=== PATIENT | female | born 1985 | race Caucasian/White ===

== ENCOUNTER 2020-07-12 22:11 | Emergency (ER) | payer OTHER, SELFPAY ==
--- NOTE | ~2020-07-12 | CT_ITS ---
EXAMINATION: CT brain wo con DATE: 07/12/2020 23:03 INDICATION: Migraine headache. TECHNIQUE: Computed tomography (CT) of the head was performed without intravenous contrast. The mA wa s adjusted according to patient size. Iterative reconstruction technique was employed. The dose-lengt h product was 605.33 mGy-cm. COMPARISON: None FINDINGS: There is no intracranial hemorrhage, acute infarction, or abnormal intracranial mass lesion . The ventricles are normal in size. There is mucosal thickening in the paranasal sinuses. The orbits are normal. The mastoid air cells are normal. IMPRESSION: 1. Normal brain. Reviewed, dictated and finalized at location A. IMPRESSION: 1. Normal brain.
--- NOTE | ~2020-07-12 | XR_ITS ---
EXAMINATION: XR chest 2V DATE: 07/12/2020 23:06 INDICATION: Nausea and vomiting. TECHNIQUE: Frontal and lateral views of the chest were obtained. COMPARISON: None. FINDINGS: The chest demonstrates clear lungs without pneumonia, pleural effusion, or pneumothorax. Th e heart size is normal. There is mild pectus excavatum. IMPRESSION: 1. No acute cardiopulmonary disease. Reviewed, dictated and finalized at location A.
[2020-07-12 22:13] VITALS: BP 173/106; PULSE 98; RESP 16; TEMP 36.4; O2SAT 100
--- NOTE | 2020-07-12 22:20 | ED.NAVMDI ---
HPI - Nausea/Vomiting/Diarrhea General Chief complaint: Headache Stated complaint: coffee ground vomit Time Seen by Provider: 07/12/20 22:20 Source: patient and family Mode of arrival: ambulatory Limitations: no limitations History of Present Illness HPI Narrative: Patient is a 34-year-old female who presents for evaluation of headache and vomiting. Patient states she awakened this afternoon with a headache located throughout her head. She states that she has a history of migraine headaches, but has not had one in quite some time. This is a bit more severe than typical migraines. She denies blurry vision, double vision, does report some mild dizziness. No lightheadedness, numbness or syncopal events. No difficulty with ambulation. No frequent falls. Patient reports some mild photosensitivity which is consistent with her previous migraine headaches, she denies any aura type sensation. Patient reports gradual worsening of the headache throughout the day and numerous episodes of coffee-ground emesis. Patient states she has vomited approximately 6 times today but denies any abdominal pain. No diarrhea or constipation. Patient denies thunderclap sensation. She denies neck pain or fever. No recent sick contacts. She reports mild rhinorrhea, no cough, chest pain or shortness of breath. Related Data Allergies Allergy/AdvReac Type Severity Reaction Status Date / Time No Known Allergies Allergy Verified 07/13/20 00:56 Review of Systems Review of Systems: Narrative: CONSTITUTIONAL: Denies fever, chills, or sweats. EYES: Reports photosensitivity to light ENT: Reports rhinorrhea and congestion without sore throat, or otalgia. CARDIOVASCULAR: Denies chest pain, palpitations, or edema. RESPIRATORY: Denies cough or dyspnea. GASTROINTESTINAL: Denies abdominal pain, reports nausea and vomiting GENITOURINARY: Denies dysuria or hematuria. SKIN: Denies rash or itching. MUSCULOSKELETAL: Denies back pain, joint pain, or myalgia. NEUROLOGIC: Reports headache without numbness or weakness PMFSH Past Medical History Medical History (Updated 07/13/20 @ 01:00 by Jessie Howell MD) Migraine headache Surgical History Surgical History (Updated 07/12/20 @ 22:53 by Jessie Howell MD) No pertinent past surgical history Social History Social History (Updated 07/12/20 @ 22:54 by Jessie Howell MD) Smoking status: Current every day smoker Tobacco type: e-cigarettes/vaping Alcohol intake: current Alcohol use details: Social Substance use: never Gender identity (if verbalized by the patient): Female Exam Narrative: Exam Narrative: GENERAL: Awake, alert, conversant HEAD: Normocephalic, atraumatic. EYES: PERRLA and EOMI. ENT: Nares clear, no rhinorrhea or epistaxis. Mucous membranes moist. NECK: Supple. CHEST: No respiratory distress, breathing even and non labored, lungs are clear without wheezing or crackles, no chest wall tenderness HEART: Regular rate, sinus rhythm ABDOMEN:Non distended, mild epigastric tenderness without guarding, rigidity EXTREMITIES: Normal range of motion. No edema. SKIN: Warm, dry, no rash. NEURO:No focal deficits. Alert and oriented x3. Finger to nose intact bilaterally. EOMs intact without nystagmus. No facial droop/asymmetry noted bilaterally. Grimace intact. Intact sensation in face. Hearing intact bilaterally. Shoulder shrug intact. Strength 5/5 bilateral upper extremities. Strength 5/5 bilateral lower extremities. Reflexes 2+ patellar. Heel to henderson intact bilaterally. Ambulatory exam deferred. Course Vital Signs Vital signs: Vital Signs Temperature 36.4 C L 07/12/20 22:13 Pulse Rate 98 07/12/20 22:13 Respiratory Rate 16 07/12/20 22:13 Blood Pressure 173/106 H 07/12/20 22:13 Pulse Oximetry 100 07/12/20 22:13 Temperature 36.4 C L 07/12/20 22:13 Pulse Rate 71 07/12/20 23:46 Respiratory Rate 16 07/12/20 23:46 Blood Pressure 154/106 H 07/12/20 23:46 Pulse Ox
[2020-07-12 22:49] LABS: Basophils Percent Auto 0.3 % (0.2-1.2); Eosinophils Absolute Auto 0.1 K/mm3 (0-0.3); Eosinophils Percent Auto 1.1 % (0-4.4); Hematocrit 41.4 % (37.0-47.0); Hemoglobin 14.1 g/dL (12.0-15.0); Immature Granulocyte Absolute 0.04 K/mm3 (0.00-0.031); Immature Granulocyte Percent A 0.4 % (0-0.5); Lymphocytes Absolute Auto 2.02 K/mm3 (0.9-3.2); Lymphocytes Percent Auto 19.8 % (18.3-44.2); Mean Corpuscular HGB Conc 34.1 g/dl (32-36); Mean Corpuscular Hemoglobin 32.9 pg (26-34); Mean Corpuscular Volume 96.5 fl (80-100); Mean Platelet Volume 9.9 fl (7.4-10.4); Monocytes Absolute Auto 0.6 K/mm3 (0.1-0.6); Monocytes Percent Auto 6.2 % (2.6-8.5); Neutrophils Absolute Auto 7.4 K/mm3 (1.3-6.7); Neutrophils Percent Auto 72.2 % (45.5-73.1); Platelet Count Result 256 k/mm3 (150-375); Red Blood Count 4.29 M/mm3 (4.2-5.4); Red Cell Distribution Width 13.2 % (11.5-14.5); White Blood Count 10.2 K/mm3 (4.5-10.0)
[2020-07-12] MEDS: ONDANSETRON INJ 4 MG/2 ML VIAL IV PUSH (22:50)
--- NOTE | 2020-07-12 22:50 | ECG_ITS ---
Measurements Intervals [place] Rate: 60 P: 49 IA: 120 QRS: 33 QRSD: 85 T: 38 QT: 405 QTc: 407 Interpretive Statements SINUS RHYTHM WITH MARKED SINUS ARRHYTHMIA BORDERLINE ST ABNORMALITY- ANT/INF LEADS BASELINE WANDER- I, II BORDERLINE ECG Electronically Signed On 07-13-2020 7:33:40 CDT by Moises Obrien D.O.
[2020-07-12] MEDS: SODIUM CHLORIDE 0.9% IV 2,000 ML 999 ML IV CONT (22:51)
[2020-07-12 23:01] LABS: Alanine Aminotransferase 43 U/L (4-35); Albumin Level 4.7 g/dL (3.5-5.1); Alkaline Phosphatase 47 U/L (38-126); Anion Gap 11 mmol/L (8-16); Aspartate Amino Transferase 53 U/L (14-36); Bilirubin,Total 0.6 mg/dL (0.2-1.3); Blood Urea Nitrogen 18 mg/dL (7-17); Calcium 9.2 mg/dL (8.4-10.2); Carbon Dioxide 22 mmol/L (22-30); Chloride 104 mmol/L (98-107); Estimated CRCL calculation 68 ml/min; Estimated Glomerular Filt Rate > 60; Glucose 84 mg/dL (65-105); Lipase 85 U/L (23-300); Potassium 3.8 mmol/L (3.4-5.0); Sodium 137 mmol/L (137-145)
[2020-07-12] MEDS: diphenhydrAMINE HCl INJ 50 MG/ML VIAL 25 MG IV PUSH (23:17)
[2020-07-12 23:22] LABS: Add Urine Microscopic? YES; Appearance Urine Clear (Clear); Bilirubin Urine Negative (Negative); Blood Urine 1+ (Negative); Color Urine Yellow (Yellow); Glucose Urine UA Negative (Negative); Ketones Urine Trace mg/dL (Negative); Leukocyte Esterase Ur Negative LEU/UL (Negative); Mucus Urine Heavy /lpf; Nitrate Urine Negative (Negative); Protein Urine 1+ mg/dL (Negative); Squamous Epithelial Cell Urine Moderate /hpf (Few); Urobilinogen Urine Negative mg/dL (<2.0); WBC Urine 0-3 /hpf
[2020-07-12 23:23] VITALS: BP 165/106; PULSE 84; O2SAT 100
[2020-07-12] MEDS: MAGNESIUM SULF 2 GM/WATER 50ML 2 GM/50 ML BAG IVPB (23:24)
[2020-07-12 23:29] LABS: Specific Grav Ur 1.031 (1.001-1.035)
[2020-07-12 23:46] VITALS: BP 154/106; PULSE 71; RESP 16; O2SAT 100
[2020-07-13] MEDS: KETOROLAC 15 MG/ML VIAL (*BKC) IV PUSH (00:08)
[2020-07-13 00:30] VITALS: BP 134/93; PULSE 77; RESP 15; O2SAT 100
== END 2020-07-13 01:10 | disposition home or self-care (01) ==
PROVIDERS: Emergency Provider Emergency Medicine
DX: G43.909 Migraine, unspecified, not intractable, without status migrainosus (principal); R11.2 Nausea with vomiting, unspecified; F17.210 Nicotine dependence, cigarettes, uncomplicated
CPT/HCPCS: 36415; 70450; 71046; 80053; 81001; 81025; 83690; 85025; 93005; 96361; 96365; 96375; 99284; J0131; J1200; J1885; J2405; J3475; J7030

== ENCOUNTER 2020-10-30 17:10 | Outpatient (CLI) | payer OTHER, SELFPAY ==
[2020-11-07 13:09] LABS: Vitamin D 25 Hydroxy 46 ng/mL (30-100)
== END 2020-10-30 17:11 | disposition home or self-care (01) ==
LOC: CHSLAB 17:12
PROVIDERS: Visit Provider Nurse Practitioner
DX: E55.9 Vitamin D deficiency, unspecified (principal)
CPT/HCPCS: 36415; 82306

== ENCOUNTER 2021-11-06 08:18 | Outpatient (CLI) | payer OTHER, SELFPAY ==
[2021-11-06 09:40] LABS: Beta HCG Quantitative < 2.39 mIU/ML
[2021-11-06 11:15] LABS: Vitamin D 25 Hydroxy 35.3 ng/mL
[2021-11-08 23:38] LABS: Prolactin 10.4 ng/mL (***)
[2021-11-09 04:09] LABS: DHEA-Sulfate 60 mcg/dL (23-266); Insulin Level Total 4.7 uIU/mL (<=19.6)
[2021-11-09 11:49] LABS: Testosterone Total 44 ng/dL (2-45)
== END 2021-11-06 08:19 | disposition home or self-care (01) ==
PROVIDERS: Visit Provider Nurse Practitioner
DX: Z13.21 Encounter for screening for nutritional disorder (principal); N91.2 Amenorrhea, unspecified
CPT/HCPCS: 36415; 82306; 82627; 83498; 83525; 84146; 84403; 84443; 84702

== ENCOUNTER 2022-01-23 11:43 | Emergency (ER) | payer OTHER, SELFPAY ==
[2022-01-23 11:48] VITALS: BP 152/114; PULSE 103; RESP 18; TEMP 36.6; O2SAT 100
--- NOTE | 2022-01-23 12:33 | ECG_ITS ---
Measurements Intervals [place] Rate: 89 P: 45 WY: 112 QRS: 51 QRSD: 84 T: 17 QT: 373 QTc: 454 Interpretive Statements SINUS RHYTHM WITH SHORT [place] INTERVAL NONSPECIFIC T WAVE ABNORMALITY BORDERLINE ECG COMPARED TO ECG 07/12/2020 23:13:22 NO SIGNIFICANT CHANGES Electronically Signed On 01-23-2022 13:44:07 CDT by Delgado Scott M.D.
[2022-01-23 12:47] LABS: Basophils Percent Auto 0.4 % (0.2-1.2); Eosinophils Absolute Auto 0.1 K/mm3 (0-0.3); Eosinophils Percent Auto 0.9 % (0-4.4); Hematocrit 39.9 % (37.0-47.0); Hemoglobin 13.3 g/dL (12.0-15.0); Immature Granulocyte Absolute 0.02 K/mm3 (0.00-0.031); Immature Granulocyte Percent A 0.4 % (0-0.5); Lymphocytes Percent Auto 36.6 % (18.3-44.2); Mean Corpuscular HGB Conc 33.3 g/dl (32-36); Mean Corpuscular Hemoglobin 35.5 pg (26-34); Mean Corpuscular Volume 106.4 fl (80-100); Mean Platelet Volume 8.9 fl (7.4-10.4); Monocytes Absolute Auto 0.5 K/mm3 (0.1-0.6); Monocytes Percent Auto 9.7 % (2.6-8.5); Neutrophils Absolute Auto 2.9 K/mm3 (1.3-6.7); Platelet Count Result 246 k/mm3 (150-375); Red Blood Count 3.75 M/mm3 (4.2-5.4); White Blood Count 5.5 K/mm3 (4.5-10.0)
[2022-01-23 12:56] LABS: Prothrombin Time 13.2 Seconds (11.1-14.7)
[2022-01-23 12:58] VITALS: BP 166/120; PULSE 83; RESP 14; O2SAT 99
[2022-01-23 13:10] LABS: Alanine Aminotransferase 26 U/L (4-35); Albumin Level 4.6 g/dL (3.5-5.1); Alkaline Phosphatase 67 U/L (38-126); Anion Gap 11 mmol/L (8-16); Aspartate Amino Transferase 67 U/L (14-36); Bilirubin,Total 0.8 mg/dL (0.2-1.3); Blood Urea Nitrogen 14 mg/dL (7-17); Carbon Dioxide 29 mmol/L (22-30); Chloride 99 mmol/L (98-107); Estimated CRCL calculation 60 ml/min; Estimated Glomerular Filt Rate > 60; Glucose 86 mg/dL (65-110); Potassium 3.9 mmol/L (3.4-5.0); Sodium 139 mmol/L (137-145)
[2022-01-23 13:16] LABS: Troponin I < 0.012 ng/mL (0.000-0.034)
[2022-01-23 13:19] VITALS: BP 170/108; PULSE 83; RESP 16; O2SAT 99
[2022-01-23] MEDS: cloNIDine HCL 0.1 MG TABLET PO (13:25)
[2022-01-23 13:34] LABS: Appearance Urine Clear (Clear); Bilirubin Urine 1+ (Negative); Color Urine Yellow (Yellow); Glucose Urine UA Negative (Negative); Ketones Urine Trace mg/dL (Negative); Leukocyte Esterase Ur 2+ LEU/UL (Negative); Nitrate Urine Negative (Negative); Protein Urine 1+ mg/dL (Negative); Specific Grav Ur 1.025 (1.001-1.035); pH Urine 7.5 (5.0-9.0)
[2022-01-23 13:40] LABS: Mucus Urine Heavy /lpf; RBC Urine 21-50 /hpf (0-2); Squamous Epithelial Cell Urine Many /hpf (Few)
[2022-01-23 13:41] LABS: Add Urine Microscopic? YES; Blood Urine Trace-Intact (Negative)
[2022-01-23 14:03] VITALS: BP 139/99; PULSE 80; RESP 16; O2SAT 99
--- NOTE | 2022-01-23 14:31 | ED.DIZZY ---
HPI - Dizziness General Chief Complaint: Dizziness Stated Complaint: hypertension Time Seen by Provider: 01/23/22 12:19 Source: patient Mode of arrival: ambulatory Limitations: no limitations History of Present Illness HPI Narrative: 36-year-old otherwise healthy here with complaints of dizziness, headache since last few days today while she was at work started having more dizzy spells. She denied any chest pain or shortness of breath. She states that he just do not feel good no history of fever or chills. MD elicited complaint: dizziness Timing: gradual onset (3 days) Severity: mild Description: lightheadedness Exacerbating factors: nothing Relieving factors: nothing Associated symptoms: denies other symptoms Related Data Allergies Allergy/AdvReac Type Severity Reaction Status Date / Time No Known Allergies Allergy Verified 07/13/20 00:56 Review of Systems Review of Systems: All systems reviewed & are unremarkable except as noted in HPI and below Constitutional: Constitutional: Reports no additional constitutional complaints Eyes: Eyes: Reports no additional eye complaints ENT: Reports system reviewed and no additional complaints, except as documented Cardiovascular: Cardiovascular: Reports no additional cardiovascular complaints Respiratory: Respiratory: Reports no additional respiratory complaints Gastrointestinal: Gastrointestinal: Reports no additional gastrointestinal complaints Musculoskeletal: Musculoskeletal: Reports no additional musculoskeletal complaints Neurologic: Reports as per HPI Endocrine: Endocrine: Reports no additional endocrine complaints PMFSH Past Medical History Medical History Migraine headache Surgical History Surgical History No pertinent past surgical history Social History Social History Smoking status: Current every day smoker Tobacco type: e-cigarettes/vaping Alcohol intake: current Alcohol use details: Social Substance use: never Gender identity (if verbalized by the patient): Female Exam Narrative: GENERAL: Well-appearing, well-nourished, and in no acute distress. HEAD: Normocephalic, atraumatic. EYES: PERRLA and EOMI NECK: Supple. CHEST: Clear to auscultation. No respiratory distress. HEART: Regular rate and rhythm. No murmur heard. Normal peripheral pulses. ABDOMEN: Soft, nontender, nondistended, normal active bowel sounds. EXTREMITIES: Normal range of motion. No edema. SKIN: Warm, dry, no rash. NEURO: No focal deficits. Alert and oriented x3. PSYCH: Normal mood and affect. Course Course Emergency Course: She was given 1.1 of clonidine which brought her pressure from 152/114 to 139/99, she is feeling much better informed her about the lab work. I discussed with Dr. Downs to see her as a new patient will follow up in the office in 2 days. Patient does feel better and recommended to take a day off and rest Vital Signs Vital signs: Vital Signs Temperature 36.6 C 01/23/22 11:48 Pulse Rate 103 H 01/23/22 11:48 Respiratory Rate 18 01/23/22 11:48 Blood Pressure 152/114 H 01/23/22 11:48 Pulse Oximetry 100 01/23/22 11:48 Temperature 36.6 C 01/23/22 11:48 Pulse Rate 80 01/23/22 14:03 Respiratory Rate 16 01/23/22 14:03 Blood Pressure 139/99 H 01/23/22 14:03 Pulse Oximetry 99 01/23/22 14:03 MDM - Dizziness MDM Narrative Medical decision making narrative: 36-year-old with sudden onset of dizziness and headache with elevated blood pressure with no my previous history and her routine work-up including EKG. Meanwhile I will give her 0.1 of clonidine to bring her pressure down. Lab Data Result diagrams: 01/23/22 12:40 01/23/22 12:40 Labs: Lab Results 01/23/22 01/23/22 01/23/22 Range/Units 12:40 12:40 12:40 WBC 5.5
[2022-01-23 14:49] VITALS: BP 150/112; PULSE 89; RESP 16; O2SAT 100
== END 2022-01-23 14:50 | disposition home or self-care (01) ==
PROVIDERS: Emergency Provider Family Medicine
DX: R42 Dizziness and giddiness (principal); I10 Essential (primary) hypertension
CPT/HCPCS: 36415; 80053; 81001; 84443; 84484; 85025; 85610; 93005; 99284; A9270

== ENCOUNTER 2022-01-25 16:32 | Outpatient (CLI) | payer OTHER, SELFPAY ==
[2022-01-25 17:07] LABS: Add Urine Microscopic? YES; Appearance Urine Cloudy (Clear); Bacteria Urine Trace /hpf; Bilirubin Urine Negative (Negative); Blood Urine 1+ (Negative); Calcium Oxalate Crystals Urine Many /hpf; Color Urine Amber (Yellow); Glucose Urine UA Negative (Negative); Ketones Urine Trace mg/dL (Negative); Leukocyte Esterase Ur 2+ LEU/UL (NEGATIVE); Mucus Urine Moderate /lpf; Nitrate Urine Negative (Negative); Protein Urine 1+ mg/dL (Negative); RBC Urine 21-50 /hpf (0-2); Specific Grav Ur 1.029 (1.001-1.035); Squamous Epithelial Cell Urine Many /hpf (Few); Urobilinogen Urine Negative mg/dL (<2.0)
[2022-01-25 17:08] LABS: D Dimer 0.57 ug/mL (<0.48)
--- NOTE | 2022-02-01 12:38 | WPDHOLTEREM ---
Holter/Event Monitor Holter/Event Monitor Date of procedure: 01/25/22 Holter/Event Procedure: 48 Hr Holter Monitor Indications: Palpitations Conclusion: 1. 48 hour holter monitor on 01/25/22. 2. Underlying rhythm is sinus rhythm. HR range 51-152 bpm; average HR 88 bpm. 3. There are 6 premature supraventricular complexes and 2 supraventricular couplets. No supraventricular tachycardia. 4. There are 19 premature ventricular complexes. No ventricular tachycardia. 5. No sinoatrial or atrioventricular blocks. No significant pauses greater than 2 seconds. 6. No symptoms available for correlation.
== END 2022-01-25 16:33 | disposition home or self-care (01) ==
PROVIDERS: PCP Family Medicine; Visit Provider Family Medicine
DX: R00.0 Tachycardia, unspecified (principal); R00.2 Palpitations; R06.00 Dyspnea, unspecified; R31.9 Hematuria, unspecified
CPT/HCPCS: 36415; 81001; 85380; 93225; 93226

== ENCOUNTER 2022-01-31 07:22 | Outpatient (CLI) | payer OTHER, SELFPAY ==
--- NOTE | ~2022-01-31 | CT_ITS ---
EXAMINATION: CTA chest PE protocol DATE: 01/31/2022 08:20 INDICATION: Other specified abnormal findings of blood chemistry. Tachycardia. TECHNIQUE: Computed tomography angiography (CTA) of the chest was performed with 100 mL Omnipaque-350 intravenous contrast timed to evaluate the pulmonary arteries. Coronal maximum intensity projection 3D-reconstructions were created by the technologist. Automated exposure control and iterative reconst ruction technique were employed. The dose-length product was 134.60 mGy-cm. COMPARISON: Chest 2 views 07/12/20 FINDINGS: There is no pneumonia or pleural effusion. The heart size is normal. No pericardial effusio n. There is no pulmonary embolus. The bones are unremarkable. IMPRESSION: 1. No pulmonary embolus. Reviewed, dictated and finalized at location A. IMPRESSION: 1. No pulmonary embolus.
== END 2022-01-31 07:23 | disposition home or self-care (01) ==
LOC: ANHIMG 07:25
PROVIDERS: PCP Family Medicine; Visit Provider Family Medicine
DX: R00.0 Tachycardia, unspecified (principal); R00.2 Palpitations; R79.89 Other specified abnormal findings of blood chemistry
CPT/HCPCS: 71275; Q9967

== ENCOUNTER 2022-03-28 15:25 | Outpatient (CLI) | payer OTHER, SELFPAY ==
[2022-03-28 16:26] LABS: Vitamin D 25 Hydroxy 69.1 ng/mL
== END 2022-03-28 15:26 | disposition home or self-care (01) ==
PROVIDERS: PCP Family Medicine; Visit Provider Obstetrics & Gynecology Gynecology
DX: E55.9 Vitamin D deficiency, unspecified (principal)
CPT/HCPCS: 36415; 82306

== ENCOUNTER 2022-08-26 14:44 | Outpatient (CLI) | payer OTHER, SELFPAY ==
[2022-08-26 15:01] LABS: Basophils Percent Auto 0.3 % (0.2-1.2); Eosinophils Percent Auto 0.5 % (0-4.4); Hematocrit 40.2 % (37.0-47.0); Hemoglobin 13.3 g/dL (12.0-15.0); Immature Granulocyte Absolute 0.02 K/mm3 (0.00-0.031); Immature Granulocyte Percent A 0.3 % (0-0.5); Lymphocytes Absolute Auto 1.55 K/mm3 (0.9-3.2); Lymphocytes Percent Auto 24.8 % (18.3-44.2); Mean Corpuscular HGB Conc 33.1 g/dl (32-36); Mean Corpuscular Hemoglobin 34.5 pg (26-34); Mean Corpuscular Volume 104.1 fl (80-100); Mean Platelet Volume 10.1 fl (7.4-10.4); Monocytes Absolute Auto 0.3 K/mm3 (0.1-0.6); Monocytes Percent Auto 4.5 % (2.6-8.5); Neutrophils Absolute Auto 4.4 K/mm3 (1.3-6.7); Neutrophils Percent Auto 69.6 % (45.5-73.1); Platelet Count Result 273 k/mm3 (150-375); Red Blood Count 3.86 M/mm3 (4.2-5.4); Red Cell Distribution Width 13.6 % (11.5-14.5); White Blood Count 6.3 K/mm3 (4.5-10.0)
[2022-08-26 15:11] LABS: Alanine Aminotransferase 41 U/L (6-35); Albumin Level 4.9 g/dL (3.5-5.1); Alkaline Phosphatase 82 U/L (38-126); Anion Gap 16 mmol/L (8-16); Aspartate Amino Transferase 73 U/L (14-36); Bilirubin,Total 0.7 mg/dL (0.2-1.3); Blood Urea Nitrogen 12 mg/dL (7-17); Calcium 9.2 mg/dL (8.4-10.2); Carbon Dioxide 24 mmol/L (22-30); Chloride 96 mmol/L (98-107); Estimated Glomerular Filt Rate > 60; Glucose 92 mg/dL (65-110); Potassium 3.5 mmol/L (3.4-5.0); Sodium 136 mmol/L (137-145)
== END 2022-08-26 14:45 | disposition home or self-care (01) ==
LOC: ANHLAB 14:45
PROVIDERS: PCP Family Medicine; Visit Provider Nurse Practitioner Family
DX: E86.0 Dehydration (principal); R00.0 Tachycardia, unspecified
CPT/HCPCS: 36415; 80053; 85025

== ENCOUNTER 2024-02-20 14:32 | Outpatient (CLI) | payer OTHER, SELFPAY ==
--- NOTE | ~2024-02-20 | CT_ITS ---
EXAMINATION: CT abdomen w con DATE: 02/20/2024 15:01 INDICATION: Abnormality of the pancreatic head TECHNIQUE: Computed tomography (CT) of the abdomen and pelvis was performed with 100 mL Omnipaque-350 intravenous contrast. Automated exposure control and iterative reconstruction technique were employe d. The dose-length product was 143.20 mGy-cm. COMPARISON: None FINDINGS: Lung bases are clear. Heart size is normal. No pericardial or pleural effusion. There are 3 indetermi phyllis subtle lesions at the dome of the liver the largest measuring 1.5 cm in maximal diameter which a re slightly lower in attenuation/enhancement in the surrounding liver. Gallbladder, spleen, pancreas, bilateral adrenal glands and left kidney are normal. 9 mm cyst at the lower pole of the right kidney . There is some fatty infiltration of the wall of the proximal colon. Visualized bowels are otherwise unremarkable with no obstruction. No pathologically enlarged abdominal lymphadenopathy. Bones are un remarkable. IMPRESSION: 1. 3 indeterminate subtle hypodense/hypoenhancing lesions at the dome of the liver comminuted largest measuring up to 1.5 cm. Recommend further evaluation with pre and postcontrast MRI. 2. No evident pancreatic lesions identified. This could be further evaluated at the same time as the liver lesions with MRI. Reviewed, dictated and finalized at location A. IMPRESSION: 1. 3 indeterminate subtle hypodense/hypoenhancing lesions at the dome of the li coy comminuted largest measuring up to 1.5 cm. Recommend further evaluation wit h pre and postcontrast MRI. 2. No evident pancreatic lesions identified. This could be further evaluated at the same time as the liver lesions with MRI.
[2024-02-20 14:51] LABS: Estimated Glomerular Filt Rate 46
== END 2024-02-20 14:33 ==
PROVIDERS: PCP Physician Assistant Medical; Visit Provider Physician Assistant Medical
DX: R93.5 Abnormal findings on diagnostic imaging of other abdominal regions, including retroperitoneum (principal); K86.9 Disease of pancreas, unspecified
CPT/HCPCS: 74160; Q9967

== ENCOUNTER 2025-04-07 15:03 | Outpatient (CLI) | payer OTHER, SELFPAY ==
--- NOTE | ~2025-04-07 | XR_ITS ---
Bilateral Hands Technique: Bilateral PA, oblique, and lateral views, and ball-catcher's view were obtained. Clinical History: Pain Findings: No acute fracture or dislocation is seen. Osseous alignment is anatomic. Joint spaces are p reserved. Soft tissues are unremarkable. Impression: Unremarkable bilateral hand radiographs. Reviewed, dictated and finalized at location . Impression: Unremarkable bilateral hand radiographs.
== END 2025-04-07 15:04 | disposition home or self-care (01) ==
LOC: MICIMG 15:06
PROVIDERS: PCP Family Medicine
DX: M79.642 Pain in left hand (principal); M79.641 Pain in right hand
CPT/HCPCS: 73130

== ENCOUNTER 2025-07-21 15:09 | Outpatient (CLI) | payer MEDICAID, SELFPAY ==
--- OUTSIDE RECORDS SUMMARY | 2025-04-20 06:00 | XMS_ITS ---
Author Organization [facility] [employer] [facility] Address [facility] [address] [address] Care Team Providers Care Tape Deck Installer Name Role Phone Yareli GAMEZ, Hector Primary Care Provider Ramonita Pierson Unavailable [phone] Ty Salamanca Unavailable [phone] REASON FOR VISIT Therapy Social History Sex Assigned At : Social History Observation Description Sex Assigned At Female Encounters Encounter Location Date Provider Diagnosis [facility] [place] [id number] [facility] [address] [address] 04/20/2025 Ty Salamanca Plan Of Treatment No Information Progress Notes * YAMILKA WOOD RDOB: [birth year] (39 yo F)Acc No.[id number]:04/20/2025 Patient: Riley BRANDTALESSANDRO YAMILKA Lin Provider: Lynda Salamanca LCPC :1985 A ge:39 Y S ex:Female Date:04/20/2025 [id number] Pcp:Hector Downs MD Data: * Chief Complaints: * T herapy * Electronic signature of Jaylene Salamanca LCPC on 07/21/2025 at 05:23 PM CDT Sign off status: Pending Signatures: No Ad Hoc Signature Added * Provider: Lynda Salamanca LCPC Date: 04/20/2025 Generated for Printi ng/Faxing/eTransmitting on: 0 07/21/2025 05:23 PM CDT
--- OUTSIDE RECORDS SUMMARY | 2025-07-21 17:23 | XMS_ITS ---
Author Organization [facility] Address [address] [address] Phone Care Team Providers Care Emergency Medical Tech Name Role Phone Hector Downs MD Primary Care Provider [facility] Service Episode Status:Identified (Enrolling) Start date:07/07/2025 Related program episode:[facility] (Active) Continued Care and Services Coordination
--- OUTSIDE RECORDS SUMMARY | 2025-07-21 17:23 | XMS_ITS | Clinical Summary ---
Author Organization [facility] [address] Address [address] [place] [address] Care Team Providers Care Occupational Health Coordinator Name Role Phone Hector Downs MD Primary Care Provider Jinny Lucio OD Unavailable [phone] Allergies No known active allergies Medications ergocalciferol (VITAMIN D) 50,000 unit capsule Take 1 capsule (50,000 Units total) by mouth once a week [address] (PROTONIX) 40 mg EC tablet Take 1 tablet (40 mg total) by mouth daily 2 Active sertraline (ZOLOFT) 100 mg tablet Take 2 tablets (200 mg total) by mouth daily Active atomoxetine (STRATTERA) 60 mg capsuleIndications :Attention-Deficit Hyperactivity Disorder Take 40 mg by mouth daily Active Auvelity 45-105 mg tablet, IR & ER, biphasic 3 Active QUEtiapine (SEROquel) 100 mg tablet Take 1 tablet (100 mg total) by mouth nightly 30 tablet 4 Active hydroCHLOROthiazid e (HYDRODIURIL) 25 mg tablet Take 1 tablet (25 mg total) by mouth daily 30 tablet 4 Active amLODIPine (NORVASC) 5 mg tablet Take 1 tablet (5 mg total) by mouth daily 30 tablet 4 Active docusate sodium (COLACE) 100 mg capsuleIndications :constipation Take 1 capsule (100 mg total) by mouth 2 (two) times a day for 5 days 10 capsule 4 Active hydrOXYzine (ATARAX) 25 mg tablet Take 1 tablet (25 mg total) by mouth nightly as needed for itching Active LORazepam (ATIVAN) 1 mg tablet Take 1 tablet (1 mg total) by mouth daily as needed for anxiety Active Active Problems Problem Noted Date Diagnosed Date 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 Per outside records, patient documented to have bilateral disc edema OS>OD confirmed on OCT as well as macular star OS>OD along with macular cotton wool spots and retinal hemorrhages. Assessment & Plan (12/06/2023 10:08 AM STARS COORDINATOR): TODAY --Pt reports seeing dots that she cannot see through in the right eye and central scotoma (The middle of my vision is just darkness, with clear peripheral vision) in the left eye --Exam notable for VA 20/20 OD, 20/30 OS ecc (improved from outside optom report), rAPD OS, color vision 10/11 OD, 7/11 OS. Slit lamp exam unremarkable OU. DFEx with OS>OD cotton wool spots, intraretinal hemorrhages. +exudates OS. --OCT RNFL with optic disc edema OS>OD, GCC thinning OS>OD, macula with normal central thickness OU, some peripheral thickening OU --HVF with evidence of central/inferior depressions c/w central scotoma OD, more diffuse inferior depressions OS. 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 Near syncope 10/31/2023 Mixed hyperlipidemia 08/25/2023 Tachycardia, unspecified 08/25/2023 Palpitations 08/25/2023 Other chest pain 08/25/2023 Primary hypertension 08/25/2023 H/O mitral valve prolapse 08/25/2023 H/O syncope 08/25/2023 Surgical History Surgery Date Site/Laterality Comments NO PAST SURGERIES Medical History Medical History Date Comments Chest pain Palpitation Anxiety Migraine headache Family History Medical History Relation Name Comments Autoimmune disease Mother Relation Name Status Comments Father [place] Mother Alive Social History Tobacco Use Types Packs/Day Years Used Date Smoking Tobacco: Former Cigarettes Vaping Smokeless Tobacco: Never Tobacco Cessation:Counseling Given: Not Answered [facility] Utilities Answer Date Recorded In the past 12 months has [employer] electric, gas, oil, or water company threatened to shut off services in your home? No 11/11/2023 Social Connection and Isolation Panel Answer Date Recorded In a typical week, how many times do you talk on the phone with family, friends, or neighbors? Patient unable to answer 11/11/2023 How often do you get togethe r with friends or relatives? Patient unable to answer 11/11/2023 How often do you attend chur ch or yazidism services? Patient unable to answer 11/11/2023 Do you belong to any clubs o r organizations such as restorationism groups, unions, fraternal or athletic groups, or school groups? Patient unable to answer 11/11/2023 How often do you attend meet ings of the clubs or organizations you belong to? Patient unable to answer 11/11/2023 Are you , , di vorced, , never , or living with a partner? Never 11/11/2023 AUDIT-C Answer Date Recorded Q1: How often do you have a drink containing alc ohol? Never 12/22/2023 Average Number of Drinks Not on file 024 Frequency of Binge Drinking Not on file 11/28 Overall Financial Resource Strain (CARDIA) Answe r Date Recorded How hard is it for you to pa y for the very basics like food, housing, medical care, and heating? Patient unable to answer 11/11/2023 Hunger Vital Sign Answer Date Recorded Within the past 12 months, y ou worried that your food would run out before you got the money to buy more. Patient unable to answer 11/11/2023 Within the past 12 months, t he food you bought just didn't last and you didn't have money to get more. Patient unable to answer 11/11/2023 PRAPARE - Transportation Answer Date Re corded In the past 12 months, has l ack of transportation kept you from medical appointments or from getting medications? Patient unable to answer 11/11/2023 In the past 12 months, has l ack of transportation kept you from meetings, work, or from getting things needed for daily living? Patient unable to answer 11/11/2023 Housing Stability Vital Sign Answer Magan e Recorded In the last 12 months, was t here a time when you were not able to pay the mortgage or rent on time? Patient unable to answer 11/11/2023 In the last 12 months, how m any places have you lived? 1 11/11/2023 In the last 12 months, was t here a time when you did not have a steady place to sleep or slept in a care home (including now)? Patient unable to answer 11/11/2023 Personal Safety Answer Date Recorded Have you ever been in or are you currently in a harmful physical or emotional relationship or is someone making you feel afraid or unsafe? Patient unable to answer 11/08/2023 Comments No Sex and Gender Information Value Date Recorded Sex Assigned at Not on file Legal Sex Female 7:44 PM STARS COORDINATOR Gender Identity Not on file Sexual Orientation Not on file Obstetrics History Last Filed Vital Signs Vital Sign Reading Time Taken Comments Blood Pressure 140/94 11/19/2023 11:31 AM STARS COORDINATOR Pulse 85 11/19/2023 11:31 AM STARS COORDINATOR Temperature 37 C (98.6 F) 11/19/2023 11:31 AM STARS COORDINATOR Respiratory Rate 22 11/19/2023 11:31 AM STARS COORDINATOR Oxygen Saturation 93% 11/19/2023 11:31 AM STARS COORDINATOR Inhaled Oxygen Concentration - - Weight 59.2 kg (130 lb 9.6 oz) 11/19/2023 5:00 A M STARS COORDINATOR Height 157.5 cm (5' 2) 11/18/2023 1:34 PM STARS COORDINATOR Body Mass Index 23.89 11/18/2023 1:34 PM STARS COORDINATOR Plan of Treatment Health Maintenance Due Date Last Done Comments Cervical Cancer Screening 1985 Depression Screening 1985 Varicella Vaccines (1 of 2 - 13+ 2-dose series) 1998 Hepatitis B Screening 2003 Regular Well Visit/Exam 18-64 2003 HPV Vaccines (1 - 3-dose SCDM series) 2012 DTaP/Tdap/Td Vaccine (2 - Td or Tdap) 10/27/2022 10/27/2012 Covid-19 Vaccine (3 - season) 2025 11/21/2020, 10/23/2020 Influenza Vaccine (#1) 2025 , 10/16/2023, 08/21/2022, Additional history exists Hepatitis C Screening Completed 11/08/2023, 023 Pneumococcal vaccine <65 Aged Out No longer eligible based on patient's age to complete this topic Procedures Procedure Name Priority Date/Time Associated Diagnosis Comments HEPATITIS PANEL, ACUTE Routine 11/08/2023 4:00 PM STARS COORDINATOR from Last 3 Months or Most Recently Relevant to Health Maintenance Results * Hepatitis panel, acute Blood (11/08/2023 4:00 PM STARS COORDINATOR) Hep A IgM Nonreactive Nonreactive [facility] Comment: Interpretive Data: If Hep A IgM Ab is reported as Equivocal, a new sample should be drawn in two weeks for testing. Current interpretive data was last revised on 20. Hep B core IgM Nonreactive Nonreactive [facility] Comment: Interpretive Data If HepB Core IgM Ab is reported as Equivocal, a new sample should be drawn in two weeks for testing. Current interpretive data was last revised on 20. Hep C Ab Nonreactive Nonreactive [facility] Comment: Antibodies to HCV not detected. Does NOT exclude the possibility of recent exposure to HCV. Current interpretive data was last revised on 22 Interpretive Data Nonreactive: Antibodies to HCV not detected. Does NOT exclude the possibility of recent exposure to HCV. Equivocal: Equivocal for HCV antibodies. Supplemental molecular testing will be automatically performed to determine infection status in accordance with current CDC screening recommendations. Reactive: Positive for HCV antibodies. This may represent current or past HCV infection. Supplemental molecular testing will be automatically performed to determine current infection status in accordance with current CDC screening recommendations. Interpretive data was last revised on 2020. HepBsAg Nonreactive Nonreactive [facility] Blood 11/08/2023 4:00 PM STARS COORDINATOR 11/08/2023 4:12 PM STARS COORDINATOR Ronda Dao NP LAB MICROBIOLOGY - GENE RAL ORDERABLES Final Result [facility] [address] [facility] Department [place] [address] from Last 3 Months or Most Recently Relevant to Health Maintenance Insurance [facility] [employer] Address: [facility] [id number] [place] [address] [facility] [employer] [facility] Address[facility] [id number] [place] [address] [employer] [facility] [employer] Address: [facility] [id number] [place] [address] Advance Directives For more information, please contact: [phone] * Full Code (Latest Code Status on File) Date Activated Date Inactivated Comments 11/08/2023 9:01 AM 11/19/2023 6:19 PM Care Teams Occupational Health Coordinator Relationship Specialty Start Date End Date Hector Dowsn MD [address] [facility] [address] [place] [address] PCP - General Family Medicine 12/03/22 Jinny Lucio OD [address] [place] [address] Referring Physician Optometry 12/05/23
--- OUTSIDE RECORDS SUMMARY | 2025-07-21 17:23 | XMS_ITS | Clinical Summary ---
Author Organization [facility] Address [address] [address] Phone Care Team Providers Care Supervisor Line Department Name Role Phone Hector Downs MD Primary Care Provider Allergies No known active allergies Medications ergocalciferol (VITAMIN D) [address] UNIT Capsule Take 1 Capsule by mouth once a week. On . 09/03/2020 Active Multivitamin-Min erals (therapeutic multivitamin-min erals) Tablet Take 1 Tablet by mouth daily. Active ondansetron (ZOFRAN-ODT) 4 MG TABLET DISPERSIBLE Take 1 Tablet by mouth every 6 hours as needed for Nausea - 1st line. 10 Tablet 08/21/2022 Active pantoprazole (PROTONIX) 40 MG Tablet Delayed Response Take 1 Tablet by mouth daily. 30 Tablet 08/21/2022 Active Probiotic Product (Probiotic-10) Chewable Tablet Take by mouth. Active Active Problems Problem Noted Date Diagnosed Date Nausea and vomiting 08/21/2022 Acute blood loss anemia 08/21/2022 Migraine 08/20/2022 MVP (mitral valve prolapse) 08/20/2022 Overview (08/20/2022): childhood Depression 08/20/2022 Panic attack 08/20/2022 Eating disorder 08/20/2022 Substance abuse 08/20/2022 Varicella 08/20/2022 High anion gap metabolic acidosis 08/20/2022 Anxiety High triglycerides Immunizations Immunization Administration Dates Next Due Influenza Vaccine greater than 3 yrs 05/27/2014 Influenza Vaccine, Quadrivalent, PF 08/21/2022 TDAP Vaccine 10/27/2012 Family History Medical History Relation Name Comments Chronic Obstructive Pulmonary Disease Maternal Grandmo ther Rheumatoid Arthritis Mother Breast Cancer Paternal Grandmother Kidney Disease Paternal Grandmother Relation Name Status Comments Maternal Grandmother Mother Paternal Grandmother Social History Tobacco Use Types Packs/Day Years Used Date Smoking Tobacco: Never Smokeless Tobacco: Never Alcohol Use Standard Drinks/Week Comments Yes 0 (1 standard drink = 0.6 oz pur e alcohol) socially Sexually Active Control Partners Comments Not Currently Comments No Sex and Gender Information Value Date Recorded Sex Assigned at Not on file Legal Sex Female 11:04 PM CDT Gender Identity Not on file Sexual Orientation Not on file Last Filed Vital Signs Vital Sign Reading Time Taken Comments Blood Pressure 137/88 07/10/2024 1:30 AM CDT Pulse 115 07/10/2024 1:30 AM CDT Temperature 36.6 C (97.8 F) 07/09/2024 5:41 PM CDT Respiratory Rate 18 07/10/2024 1:30 AM CDT Oxygen Saturation 99% 07/10/2024 1:30 AM CDT Inhaled Oxygen Concentration - - Weight 56.7 kg (125 lb) 07/09/2024 5:41 PM CDT Height 160 cm (5' 3) 07/09/2024 5:41 PM CDT Body Mass Index 22.14 07/09/2024 5:41 PM CDT Plan of Treatment Health Maintenance Due Date Last Done Comments Hepatitis C Virus (HCV) Screening 1985 Hepatitis B Immunization (1 of 3 - 19+ 3-dose series) 2004 Pap Smear 2006 Human Papillomavirus (HPV) Immunization (1 - 3-dose SCDM series) 2012 Cervical Cancer Screening (CCS) 2015 HPV/Cotest 2015 Influenza Immunization (#1) 2025 12/2 10/2022, 08/21/2022, 08/28/2020, Additional history exists SARS-COV-2 Immunization ( - season) 2025 11/21/2020, 10/23/2020 Td Immunization Every 10 Years (Adults With 1 Tdap) 10/16/2033 10/16/2023, 10/27/2012 Respiratory Syncytial Virus (RSV) Immunization (Adult) (1 - 1-dose 75+ series) 2060 DTaP/Tdap/Td Immunization Discontinued 10/16/2023, 10/2012 Meningococcal Immunization (ACWY) Aged Out No longer eligible based on patient's age to complete this topic Pneumococcal Immunization Combined Aged Out No longer eligible based on patient's age to complete this topic Rotavirus Immunization Aged Out No lo nger eligible based on patient's age to complete this topic Insurance [place]ICAID [place] Advance Directives * Full Code (Latest Code Status on File) Date Activated Date Inactivated Comments 08/20/2022 2:16 AM 08/21/2022 1:03 PM CPR-Full T reatment: FULL ARREST: Attempt Resuscitation/CPR wit intubation and mechanical ventilation. PRE-ARREST: Use entire range of life support measures to stabilize the patient. Care Teams Supervisor Line Department Relationship Specialty Start Date End Date Hector Downs MD [address] [place] [address] PCP - General Family Medicine 08/19/22
--- OUTSIDE RECORDS SUMMARY | 2025-07-21 17:23 | XMS_ITS | Patient Health Record ---
Author Organization [facility] Address [address] [facility] [address] [place] [address] Care Team Providers Care Dice Dealer Name Role Phone Hector Downs MD Primary Care Provider Ramonita Pierson Unavailable [phone] Ty Salamanca Unavailable [phone] Allergies No Known Allergies Reason For Referral No Information Medications Medication SIG (Take, Route, Frequency, Duration) Notes Start Date End Date Status amLODIPine Besylate 5 MG Tablet 1 tablet Orally Once a day Active Pantoprazole Sodium 40 MG Tablet Delayed Release 1 tablet 1/2 to 1 hour before morning meal Orally Once a day Active lamoTRIgine 25 MG Tablet 2 tablet in the morning Oral once a day; Duration: 90 days Active Ativan 1 MG Tablet 1 tablet at bedtime as needed Orally Once a day Active Iron 325 (65 Fe) MG Tablet 1 tablet Oral ly Three times a Week Active Atomoxetine HCl 100 MG Capsule 1 capsule in the morning Orally Once a day; Duration: 90 days Active Vitamin D 50 MCG (2000 UT) Tablet 1 tablet Orally Once a day Active Metoprolol Tartrate 25 MG Tablet 1 tablet with food Orally Twice a day Active traZODone HCl 100 MG Tablet 1 tablet at bedtime Orally Once a day; Duration: 90 days Active Sertraline HCl 100 MG Tablet TAKE 1 AND 1/2 TABLETS BY MOUTH ONCE DAILY; Duration: 90 Active Social History Tobacco Use: Social History Observation Description Date Details (start date - stop date) Unknown Sex Assigned At : Social History Observation Description Sex Assigned At Female Social History Household: Social Info Question Answer Notes Household Marital status: Tobacco Use: Social Info Question Answer Notes Tobacco Control (Standard) Tobacco use: Uses tobacco in other forms Additional Details Category Social Info Options Details Miscellaneous: Occupation: Radiology min h Migrated Social History Migrated Social History Alcohol Intake: Moderate 08/01/2023,Tobacco Years: Former smoker 08/01/2023 Problems Problem Type SNOMED Code ICD Code Onset Dates Problem Status W/U Status Risk Notes Problem Alcohol dependence (78993996) Alcohol dependence, uncomplicated (F10.20) Active confirmed Problem Moderate recurrent major depression (80961037) Major depressive disorder, recurrent, moderate (F33.1) Active confirmed Problem Generalized anxiety disorder (77729838) Generalized anxiety disorder (F41.1) Active confirmed Problem Attention deficit hyperactivity disorder, combined type (33892800) Attention-deficit hyperactivity disorder, combined type (F90.2) Active confirmed Vital Signs Heart Rate 101 /min 04/08/2025 Height-cm 157.48 cm 04/08/2025 Blood pressure diastolic 87 mm Hg 04/08/2025 Weight-kg 61.69 kg 04/08/2025 Height 62.00 in 04/08/2025 Blood pressure systolic 123 mm Hg 04/08/2025 Weight 136 lbs 04/08/2025 BMI 24.87 kg/m2 04/08/2025 Encounters Encounter Location Date Provider Diagnosis [facility] [place] [address] [address] 04/08/2025 Ramonita Escobar Major depressive disorder, recurrent, moderate F33.1 ; Generalized anxiety disorder F41.1 ; Attention-deficit hyperactivity disorder, combined type F90.2 ; Alcohol dependence, uncomplicated F10.20 ; Encounter for screening for cardiovascular disorders Z13.6 and Encounter for screening for depression Z13.31 [facility] [place] [address] [address] 09/28/2024 Ramonita Escobar Major depressive disorder, recurrent, moderate F33.1 [facility] [place] [address] [address] 09/28/2024 Ramonita Escobar Major depressive disorder, recurrent, moderate F33.1 [facility] [place] [address] [facility] [address] [address] 03/25/2025 Ramonita Escobar [facility] [place] [address] [address] 04/15/2025 Ramonita Escobar [facility] [place] [address] [place] [address] 04/08/2025 Ramonitastone Escobar [facility] [place] [facility] [address] [place] [address] 04/17/2025 Ramonitastone Escobar [facility] [place] [facility] [address] [place] [address] 04/21/2025 Ramonitastone Garciainna [facility] [place] [facility] [address] [place] [address] 04/22/2025 Ramonita Escobar Assessments Encounter Date Diagnosis (ICD Code) Assessment Notes Treatment Notes Treatment Clinical Notes Section Notes 09/28/2024 Major depressive disorder, recurrent, moderate (ICD-10 - F33.1) 09/28/2024 Major depressive disorder, recurrent, moderate (ICD-10 - F33.1) 04/08/2025 Major depressive disorder, recurrent, moderate (ICD-10 - F33.1) 04/08/2025 Generalized anxiety disorder (ICD-10 - F41.1) 04/08/2025 Attention-deficit hyperactivity disorder, combined type (ICD-10 - F90.2) 04/08/2025 Alcohol dependence, uncomplicated (ICD-10 - F10.20) Labs pending from [facility], can consider naltrexone pending results-history of elevated liver enzymes 04/08/2025 Encounter for screening for cardiovascular disorders (ICD-10 - Z13.6) 04/08/2025 Encounter for screening for depression (ICD-10 - Z13.31) 04/08/2025 Other Increase atomoxetine to 100mg daily for ADHD management -all refills sent in today Patient educated on all medications including potential benefits, side effects, risks. Educated on proper dosing schedule and importance of compliance. -Assessment and treatment plan reviewed with patient. -Compliance with treatment plan importance discussed. -Discussed the risks/benefits of this medication -Discussed medication side effects. -Contact office if symptoms worsen. -Discussed that it can take up to 6-8 weeks to see full therapeutic effects of psychotropic medications. -Crisis prevention hotline 866. Plan Of Treatment No Information Insurance Providers Payer Name Payer Address Payer Phone Subscriber Number Group Number Insured Name Patient Relationship to Insured Coverage Start Date Coverage End Date [facility] [address] [address] [place] [address] [phone] [id number] JAHMAGY WEINBERGLEY Self - patient is the insured Medical (General) History Medical History History ICD Code Problems: Attention deficit hyperactivit y disorder, combined type Generalized anxiety disorder Moderate recurrent major depression Severe recurrent major depression withou t psychotic features Vitamin D deficiency HTN MV prolapse alcohol induced pancreatitis Hospitalization History Reason Date(Month/Year) Medical admission for alcoholic pancreat itis 2023 [place], [place]. Alcohol withdrawal/detox 2024
--- OUTSIDE RECORDS SUMMARY | 2025-07-21 17:23 | XMS_ITS | Clinical Summary ---
Author Organization [facility] Address [address] [place] [address] [place] [address] Care Team Providers Care Septic Tank Service Technician Name Role Phone Unavailable Primary Care Provider Unavailabl e Source Comments [facility],non-owned Affiliates and Associated Physician Practices is amultiple site organization consisting of ambulatory clinics and hospital sitesin [place], [place], [place] and [place]. This disclosure is being madepursuant to the Care Everywhere program and may not contain all information available regarding this patient. Last updated 18.[facility] Allergies No known active allergies Medications * Be aware that medications may not be up to date on this document. Alwaysverify current medications with the patient. amLODIPine (Norvasc) 10 MG tablet Take 1 (one) tablet by mouth once daily Active sertraline (Zoloft) 100 MG tablet Take 1 (one) tablet by mouth once daily Active pantoprazole EC (Protonix) 40 MG tablet Take 1 (one) tablet by mouth once daily Active Vitamin D, Ergocalciferol, 57475 units CAPS Take 1 (one) capsule by mouth every 7 days Active QUEtiapine (SEROquel) 100 MG tablet Take 1 (one) tablet by mouth at bedtime Active Nutritional Supplement LIQD Take 8 oz by mouth 2 times daily Ensure clear 07/10/2024 Active folic acid (Folvite) 1 MG tablet Take 1 (one) tablet by mouth once daily 30 tablet 07/13/2024 Active multiple vitamins with minerals tablet Take 1 (one) tablet by mouth once daily 07/13/2024 Active thiamine (Vitamin B-1) 100 MG tablet Take 1 (one) tablet by mouth once daily 30 tablet 07/13/2024 Active Active Problems Problem Noted Date Diagnosed Date Acute pancreatitis, unspecif ied complication status, unspecified pancreatitis type 07/09/2024 Social History Tobacco Use Types Packs/Day Years Used Date Smoking Tobacco: Never Smokeless Tobacco: Never Tobacco Cessation:Counseling Given: Yes Alcohol Use Standard Drinks/Week Comments Yes 0 (1 standard drink = 0.6 oz pure alcohol) Vodka 5 liters 3x/week. Last drink was 07/06/2024 AUDIT-C Answer Date Recorded Q1: How often do you have a drink containing alcohol? 2-3 times a week 07/10/2024 Q2: How many drinks containi ng alcohol do you have on a typical day when you are drinking? 10 or more Q3: How often do you have si x or more drinks on one occasion? Daily or almost daily 07/10/2024 Overall Financial Resource Strain (CARDIA) Answe r Date Recorded How hard is it for you to pa y for the very basics like food, housing, medical care, and heating? Not hard at all 07/12/2024 [facility] - Occupational Stress Questionnaire Answer Date Recorded Do you feel stress - tense, restless, nervous, or anxious, or unable to sleep at night because your mind is troubled all the time - these days? Not at all 07/12/2024 Hunger Vital Sign Answer Date Recorded Within the past 12 months, y ou worried that your food would run out before you got the money to buy more. Never true 07/12/20 24 Within the past 12 months, t he food you bought just didn't last and you didn't have money to get more. Never true 07/12/2024 PRAPARE - Transportation Answer Date Re corded In the past 12 months, has l ack of transportation kept you from medical appointments or from getting medications? No 06/27 In the past 12 months, has l ack of transportation kept you from meetings, work, or from getting things needed for daily living? No 07/12/2024 Housing Stability Vital Sign Answer Magan e Recorded In the last 12 months, was t here a time when you were not able to pay the mortgage or rent on time? No 07/12/2024 [address] of Places Lived in the Last Year Not on f ile 07/12/2024 In the last 12 months, was t here a time when you did not have a steady place to sleep or slept in a chcf (including now)? No 07/12/2024 Comments No Sex and Gender Information Value Date Recorded Sex Assigned at Not on file Legal Sex Female 2:23 PM REMOTE SENSING SURVEYOR Gender Identity Not on file Sexual Orientation Not on file Last Filed Vital Signs Vital Sign Reading Time Taken Comments Blood Pressure 119/84 07/12/2024 3:04 PM CDT Pulse 61 07/12/2024 3:04 PM CDT Temperature 36.9 C (98.5 F) 07/12/2024 3:04 PM CDT Respiratory Rate 18 07/12/2024 3:04 PM CDT Oxygen Saturation 99% 07/12/2024 3:04 PM CDT Inhaled Oxygen Concentration - - Weight 59 kg (130 lb 1.1 oz) 07/10/2024 2:13 AM CDT Height 157.5 cm (5' 2) 07/10/2024 2:13 AM CDT Body Mass Index 23.79 07/10/2024 2:13 AM CDT Plan of Treatment Health Maintenance Due Date Last Done Comments HIV SCREENING 2000 HEPATITIS C SCREENING 07/18/2003 DTAP/TDAP/TD VACCINES (1 - Tdap) 2004 HEPATITIS B VACCINE (1 of 3 - 19+ 3-dose series) 2004 PAP SMEAR 2006 HPV VACCINE (1 - 3-dose SCDM series) 2012 DEPRESSION SCREENING 10/27/2024 COVID-19 VACCINE (3 - season) 2025 11/21/2020, 10/23/2020 INFLUENZA VACCINE (#1) 2025 3, 08/21/2022, 08/28/2020, Additional history exists ZOSTER VACCINE (1 of 2) 2035 HIB VACCINE Aged Out No longer eligi ble based on patient's age to complete this topic MENINGOCOCCAL (Group B) VACCINE SHARED DECISION-MAKING Aged Out No longer eligible based on patient's age to complete this topic MENINGOCOCCAL GROUPS A/C/Y/W VACCINE Aged Out No longer eligible based on patient's age to complete this topic PNEUMOCOCCAL VACCINE Aged Out No long er eligible based on patient's age to complete this topic Insurance MEDICAID - [place] Advance Directives * Full Code (Latest Code Status on File) Date Activated Date Inactivated Comments 07/10/2024 2:43 AM 07/12/2024 6:08 PM
--- OUTSIDE RECORDS SUMMARY | 2025-07-21 17:23 | XMS_ITS | Clinical Summary ---
Author Organization [facility] Address [address] [place] [address] Care Team Providers Care Senior Site Manager Name Role Phone Raisa Vaz Andreia ARGUELLES Primary Care Provider Allergies No known active allergies Medications sertraline 100 MG tablet 08/07/2020 Active ibuprofen 400 MG tablet 07/16/2020 Active vitamin D2, ergocalciferol, 43937 UNITS capsule 09/03/2020 Active TEE 3-0.02 MG Tab 07/02/2020 Active sertraline 25 MG tabletIndication s:Anxiety,Severe episode of recurrent major depressive disorder, without psychotic features ([facility]) Take 1 tablet (25 mg total) by mouth daily. 30 tablet 2 09/11/2020 Active Active Problems Problem Noted Date Diagnosed Date Anxiety Depression Migraines Immunizations Immunization Administration Dates Next Due Influenza Adult (Generic) 08/28/2020,06/25/2013, 09/14/2012 Family History Medical History Relation Comments No Known Problems Father Depression Maternal Aunt No Known Problems Maternal Grandfather COPD Maternal Grandmother Lung Cancer Maternal Grandmother Rheumatoid Arthritis Mother Breast Cancer Paternal Grandmother Kidney Disease Paternal Grandmother Relation Status Comments Father Maternal Aunt Alive Maternal Grandfather Alive Maternal Grandmother Mother Alive Paternal Grandmother Social History Tobacco Use Types Packs/Day Years Used Date Smoking Tobacco: Never Smokeless Tobacco: Never Alcohol Use Standard Drinks/Week Comments Yes 0 (1 standard drink = 0.6 oz pur e alcohol) AUDIT-C Answer Date Recorded Q1: How often do you have a drink containing alc ohol? 2-4 times a month 09/11/2020 Q2: How many drinks containi ng alcohol do you have on a typical day when you are drinking? 7 to 9 09/11/2020 Q3: How often do you have si x or more drinks on one occasion? Less than monthly 09/11/2020 PHQ-2 Answer Date Recorded PHQ-2 Score - If the patient scores above 3, please move on to questions 3-9 6 09/11/2020 Comments Unknown Sex and Gender Information Value Date Recorded Sex Assigned at Not on file Legal Sex Female 2:28 PM WAREHOUSE AND RECEIVING SUPERVISOR Gender Identity Not on file Sexual Orientation Not on file Last Filed Vital Signs Vital Sign Reading Time Taken Comments Blood Pressure 155/109 09/11/2020 12:57 PM WAREHOUSE AND RECEIVING SUPERVISOR Pulse 105 09/11/2020 12:57 PM WAREHOUSE AND RECEIVING SUPERVISOR Temperature 36.4 C (97.6 F) 09/11/2020 12:57 PM WAREHOUSE AND RECEIVING SUPERVISOR Respiratory Rate 20 09/11/2020 12:5 7 PM WAREHOUSE AND RECEIVING SUPERVISOR Oxygen Saturation 98% 09/11/2020 12: 57 PM WAREHOUSE AND RECEIVING SUPERVISOR Inhaled Oxygen Concentration - - Weight 50.8 kg (111 lb 14.4 oz) 020 12:57 PM WAREHOUSE AND RECEIVING SUPERVISOR Height 157.5 cm (5' 2) 09/11/2020 12:5 7 PM WAREHOUSE AND RECEIVING SUPERVISOR Body Mass Index 20.47 09/11/2020 12:57 PM WAREHOUSE AND RECEIVING SUPERVISOR Plan of Treatment Health Maintenance Due Date Last Done Comments Cervical Cancer Screening Pa p Smear (Age 30 to 64) Every 3 Years 1985 Annual Physical 1988 Hepatitis C 2003 DTaP, Tdap and Td Vaccines ( 1 - Tdap) 2004 Hepatitis B Vaccines (1 of 3 - 19+ 3-dose series) 2004 HPV Vaccines (1 - 3-dose SCD M series) 2012 Cervical Cancer Screening Pa p with HPV Testing (Age 30 to 64) Every 5 Years 2015 Cervical Cancer Screening with HPV 2015 COVID-19 Vaccine (2023-2 5 season) 2025 Meningococcal B Vaccine Aged Out No l onger eligible based on patient's age to complete this topic Meningococcal Vaccine Aged Out No jus shonda eligible based on patient's age to complete this topic Pneumococcal Vaccine: Pediat rics (0 to 5 Years) and At-Risk Patients (6 to 49 Years) Aged Out No longer eligible b ased on patient's age to complete this topic RSV Immunizations Under 20 Months Aged Out No longer eligible based on patient's age to complete this topic Insurance [id number] Care Teams Senior Site Manager Relationship Specialty Start Date End Date Raisa Vaz APNP [address] [place] [id number] PCP - General NURSE PRACTITIONER 09/11/20
--- OUTSIDE RECORDS SUMMARY | 2025-07-21 17:23 | XMS_ITS ---
Author Organization [facility] Address [address] [address] Phone Care Team Providers Care Special Education Coordinator Name Role Phone Hector Downs MD Primary Care Provider [facility] Status:Enrolled (Active) Start date:07/07/2025 Enrollment date:07/07/2025 Related social drivers of health:Intimate Partner Violence, Social Connections, Tobacco Use, Financial Resource Strain, Depression, Stress, Physical Activity, Food Insecurity, Transportation Needs, Housing Stability Related service episodes:[facility] Service Episode (Enrolling) Continued Care and Services Coordination
[2025-07-21 18:28] LABS: Hematocrit 36.3 % (37.0-47.0); Hemoglobin 11.6 g/dL (12.0-15.0)
== END 2025-07-21 15:10 | disposition home or self-care (01) ==
LOC: ANHBWCLAB 15:10
PROVIDERS: PCP Family Medicine; Visit Provider Anesthesiology
DX: D64.9 Anemia, unspecified (principal); Z01.818 Encounter for other preprocedural examination
CPT/HCPCS: 36415; 85014; 85018

== ENCOUNTER 2025-07-27 04:22 | Day surgery (SDC) | payer MEDICAID, SELFPAY ==
--- OUTSIDE RECORDS SUMMARY | 2025-04-20 06:00 | XMS_ITS ---
Author Organization [facility] [employer] [facility] Address [facility] [address] [address] Care Team Providers Care Credit Relationship Manager Name Role Phone Yareli GAMEZ, Hector Primary Care Provider Ramonita Pierson Unavailable [phone] Ty Salamanca Unavailable [phone] REASON FOR VISIT Therapy Social History Sex Assigned At : Social History Observation Description Sex Assigned At Female Encounters Encounter Location Date Provider Diagnosis [facility] [place] [address] [facility] [address] [address] 04/20/2025 Ty Salamanca Plan Of Treatment No Information Progress Notes * YAMILKA WOOD RDOB: [birth year] (40 yo F)Acc No.[id number]:04/20/2025 Patient: Riley BRANDTALESSANDRO YAMILKA Lin Provider: Lynda Salamanca LCPC :1985 A ge:39 Y S ex:Female Date:04/20/2025 [id number] Pcp:Hector Downs MD Data: * Chief Complaints: * T herapy * Electronic signature of Jaylene Salamanca LCPC on 07/27/2025 at 04:25 AM CDT Sign off status: Pending Signatures: No Ad Hoc Signature Added * Provider: Lynda Salamanca LCPC Date: 0 04/20/2025 Generated for Printi ng/Faxing/eTransmitting on: 1 04:25 AM CDT
--- OUTSIDE RECORDS SUMMARY | 2025-05-27 06:13 | XMS_ITS | Continuity of Care Document ---
Author Organization [facility] Address [address] [place] [address] [address] [place] [address] Phone Care Team Providers Care Roll Up Helper Name Role Phone Nicholas De La Garza MD, FACS Unavailable Unavailab le Allergies, Adverse Reactions, Alerts Substance Reaction Status Criticality No Known Allergies Active No Inform ation Medications Medication Instructions Dosage Effective Dates (start - stop) Status Comments Norvasc 5 mg tablet take 1 tablet by oral route every day 5 MG - Active hydrochlorothiazide 25 mg tablet take 1 tablet by oral route every day 25 MG - Active quetiapine 100 mg tablet take 1 tablet b y oral route 2 times every day 100 MG - Active atomoxetine 40 mg capsule take 1 capsule by oral route every day in the morning 40 MG - Active lorazepam 1 mg tablet take 1 tablet by oral route 3 times every day as needed 1 MG - Active pantoprazole 40 mg tablet,delayed release take 1 tablet by oral route every 2 days 40 MG - Active Auvelity 45 mg-105 mg tablet, extended release take 1 tablet by oral route 2 times every day 1.00 tablet - Active Procedures Procedure Date SCODI, Posterior Segment No Charge Refraction No Charge GDX Retina No Charge Optomap Fundus Photos 024 Office/outpatient Visit, New Advance Directives Directive Yes / No Effective Date File Name No Information Encounters Encounter Description Practice Location Reason(s) For Visit Diagnoses Date Provider Providers Copied on Encounter [facility], [address], [place], [place], [id number], [place] tel:[phone] SEC [place] No Information 5 Frederic Peterson. [address], [address], [place], [place], [address], [place]. tel:[phone] Office/outpa tient Visit, [facility], [address], [place], [place], [address], [place] tel:[phone] SEC John KATHLEEN Professional Complete Exam (chief complaint) Neuroretinitis of both eyes 4 Khadijah OD Jinny. [address], [address], [place], [place], [address], [place]. tel:[phone] Referring Provider: Colton Angela, [facility] [address], [place], [address]. tel:[phone] Family History Family Member Type Diagnosis Age At Onset No Information Payers Payer name Insurance type Covered green party ID Authoriza tion(s) No Information Social History Type Description Quantity Date Captured Comments Sex Female Smoking Status No Information Chief Complaint And Reason For Visit No Information Reason For Referral Reason For Referral No Information Plan Of Treatment Date Type Action Status Patient Education Learning About Your Eye s completed History Of Present Illness Encounter Date Complaint History Of Prese nt Illness Complete Exam The 38 year old patient presents for evaluation of Complete Exam in the right eye and left eye. Patient states she has a black spot in OS x 1 week. Patient states she gets really light sensitive. Patient thinks she needs to get glasses because her eyes seems blurry. Patient recently spent 10 days in ICU for pneumonia and elevated BP. BP in office 138/99 Functional Status Date Functional Assessmen t No Information Instructions Date Instruction Additional Infor mation Impression/Plan Assessments Type Assessment Date No Information Patient Care Teams Name Effective Dates (start - stop) Status Members No Information
[2025-07-19 12:09] VITALS: BMI 22.8
--- NOTE | 2025-07-19 12:17 | PC.NURSE ---
Addendum entered by Jeremy Garnica RN 07/19/25 12:35: Patient quoting her instructions from Dr Villanueva's office indicated she was told she could have clear liquids until 3 hours before surgery. Original Note: [facility] has started construction of its new state of the art ER which will open Spring 2026. With this, we anticipate parking may be a challenge for some our surgical patients and families. Parking spaces are limited but are available for all Surgical, obstetrics, and ER patients sharing this lot. If you arrive and find you are having a hard time finding a parking space, please note that we understand the challenges, please drive around the hospital and park near Hospital Entrance 1. When you enter this entrance, you can ask a volunteer to direct or take you back to the surgical waiting area to check in. We appreciate everyone?s understanding of these expected challenges while we build for your future. Report to the Outpatient Waiting Room, entrance under the green pavilion located off [address], at time _1030_ on date _12-50-2278_. Planned Procedure Time: _1230_.? Time changes happen often and if your time is changed the preop area will call you the afternoon before. - You and your visitor will be asked to self-screen and do not enter if you have any COVID symptoms. Please call surgeon if you need to reschedule. - A mask is optional within the hospital at this time. Patients may have clear liquids (water, carbonated beverages, clear teas, apple juice) until 3 hours prior to surgery with a maximum of 20 ounces. - No food from midnight until time of surgery and no smoking, or chewing tobacco (or any form of nicotine). No chewing gum, candy or mints. Take only the following medications with a SIP of water on the morning of surgery: __Amlodipine, Lamotrigine, Metoprolol and if needed Lorazepam.____ DO NOT STOP ANY OF YOUR OTHER PRESCRIPTION MEDICATIONS PRIOR TO SURGERY EXCEPT THE FOLLOWING Hold all vitamins and supplements for 3 days per anesthesiologist. Medications to discontinue per physician Date to take last dose Please no make-up, nail vincentian, hairspray, perfume, deodorant, or body powder the day of surgery.? No jewelry (including any body piercings) or valuables the day of surgery, leave them at home.? Please take a shower or bath the night before, or the morning of, surgery with an antibacterial soap.? Wear comfortable, loose fitting clothing.? - Jewelry must be removed prior to entering the operating room.? Rings and piercings that are not removed may be cut off. - The hospital will not accept responsibility for valuables.? - Please leave all valuables, including medications, at home the day of surgery. If you are going home after surgery, a licensed pile driver operator must drive you home.? - NO public transportation without another adult if you receive anesthesia. - We recommend that an adult stay with you for 24 hours following discharge. - We also recommend that you do not drive, make important decision, drink alcoholic beverages, or take any drugs that were not prescribed by your health care provider for at least 24 hours after your discharge time. Follow any additional instructions given to you from your surgeon. Telephone instructions given to __Sharonda___and asked if any additional questions and then verbalized understanding. Patient advised to call surgeon office or pre surgery nurse liaison [phone] if any additional questions.
[2025-07-27] VITALS (8 sets, daily range): BP systolic 110–141; BP diastolic 67–95; PULSE 79–102; RESP 12–20; TEMP 36.3; O2SAT 99–100
--- OUTSIDE RECORDS SUMMARY | 2025-07-27 04:25 | XMS_ITS | Clinical Summary ---
Author Organization [facility] Address [address] [place] [address] [place] [address] Care Team Providers Care Agricultural Crop Farm Manager Name Role Phone Unavailable Primary Care Provider Unavailabl e Source Comments [facility],non-owned Affiliates and Associated Physician Practices is amultiple site organization consisting of ambulatory clinics and hospital sitesin [place], [place], [place] and [place]. This disclosure is being madepursuant to the Care Everywhere program and may not contain all information available regarding this patient. Last updated 18.[facility] Allergies No known active allergies Medications * [...] mouth once daily Active Vitamin D, Ergocalciferol, 18532 units CAPS Take 1 (one) capsule by [...] and heating? Not hard at all 07/12/2024 [facility] - Occupational [...] place to sleep or slept in a fci (including now)? No 07/12/2024 Comments No Sex and Gender Information Value Date Recorded Sex Assigned at Not on file Legal Sex Female 2:23 PM DIRECTOR TELEVISION NEWS Gender Identity Not on file Sexual Orientation [...] Health Maintenance Due Date Last Done Comments MAMMOGRAM 1985 HIV SCREENING 2000 HEPATITIS C SCREENING 07/18/2003 DTAP/TDAP/TD VACCINES (1 - Tdap) 2004 HEPATITIS B VACCINE (1 of 3 - 19+ 3-dose series) 2004 PAP SMEAR 2006 HPV VACCINE (1 - 3-dose SCDM series) 2012 DEPRESSION SCREENING 10/27/2024 COVID-19 VACCINE (3 - season) 2025 11/21/2020, 10/23/2020 INFLUENZA VACCINE (#1) 2025 , 08/21/2022, 08/28/2020, Additional history exists LIPID TESTING 07/11/2029 07/11/2024, 02/2024, 08/25/2023 ZOSTER VACCINE (1 of 2) 2035 HIB [...] Procedure Name Priority Date/Time Associated Diagnosis Comments LIPID PROFILE AM Draw 07/11/2024 3:20 AM CDT Acute pancreatitis, unspecified complication status, unspecified pancreatitis type from Last 3 Months or Most Recently Relevant to Health Maintenance Results * (ABNORMAL) LIPID PROFILE (07/11/2024 3:20 AM CDT) [facility] Cholesterol 257(H) <200 mg/dL 07/11/2024 5:06 AM CDT [facility] Triglycerides 53 <150 mg/dL 07/11/2024 5:06 AM CDT [facility] HDL Cholesterol 71 >40 mg/dL 4 5:06 AM CDT [facility] LDL Calculated 175(H) <130 mg/dL 07/11/2024 5:06 AM CDT [facility] VLDL Calculated 11 <=30 mg/dL 4 5:06 AM CDT [facility] Chol HDL Ratio 3.6 <4.5 07/11/2024 5:06 AM CDT [facility] LDL/HDL Ratio 2.5 <5.0 07/11/2024 5:06 AM T [facility] Blood BLOOD SPECIMEN / Unknown Venipuncture / Unknown 07/11/2024 3:20 AM CDT 07/11/2024 4:37 AM CDT Fred Samaniego MD LAB - CHEMISTRY ORDERABLES Final Result [facility] [address] [place] [address] from Last 3 Months or Most Recently Relevant to Health Maintenance Insurance MEDICAID - [place] Advance Directives * Full Code (Latest Code Status on File) Date Activated Date Inactivated Comments 07/10/2024 2:43 AM 07/12/2024 6:08 PM
--- OUTSIDE RECORDS SUMMARY | 2025-07-27 04:25 | XMS_ITS | Clinical Summary ---
Author Organization [facility] Address [address] [address] Phone Care Team Providers Care Cloth Doffer Name Role Phone Hector Downs MD Primary Care Provider Allergies No known active allergies Medications ergocalciferol (VITAMIN D) 55780 UNIT Capsule Take 1 Capsule by mouth [...] Comments Hepatitis C Virus (HCV) Screening 1985 Mammogram 1985 Hepatitis B Immunization (1 of 3 - 19+ 3-dose series) 2004 Pap Smear 2006 Human Papillomavirus (HPV) Immunization (1 - 3-dose SCDM series) 2012 Cervical Cancer Screening (CCS) 2015 HPV/Cotest 2015 Influenza Immunization (#1) 2025 12/2 10/2022, 08/21/2022, 08/28/2020, Additional history exists SARS-COV-2 Immunization ( - season) 2025 11/21/2020, 10/23/2020 Discussion re Starting/Frequency of Mammograms 2025 Td Immunization Every 10 Years (Adults With [...] measures to stabilize the patient. Care Teams Cloth Doffer Relationship Specialty Start Date End Date Hector Downs MD [address] [place] [address] PCP - General Family Medicine 08/19/22
--- OUTSIDE RECORDS SUMMARY | 2025-07-27 04:25 | XMS_ITS | Clinical Summary ---
Author Organization [facility] Address [address] [place] [address] Care Team Providers Care Program Arranger Name Role Phone Raisa Vaz Andreia ARGUELLES Primary Care Provider [phone] Allergies No known active allergies Medications sertraline 100 MG tablet 08/07/2020 Active ibuprofen 400 MG tablet 07/16/2020 Active vitamin D2, ergocalciferol, 46960 UNITS capsule 09/03/2020 Active TEE 3-0.02 MG Tab 07/02/2020 Active sertraline 25 MG tabletIndication s:Anxiety,Severe episode of recurrent major depressive disorder, without psychotic features ([facility]) Take 1 tablet (25 mg total) [...] on file Legal Sex Female 2:28 PM MOTOR BUILDER WINDER Gender Identity Not on file Sexual Orientation Not on file Last Filed Vital Signs Vital Sign Reading Time Taken Comments Blood Pressure 155/109 09/11/2020 12:57 PM MOTOR BUILDER WINDER Pulse 105 09/11/2020 12:57 PM MOTOR BUILDER WINDER Temperature 36.4 C (97.6 F) 09/11/2020 12:57 PM MOTOR BUILDER WINDER Respiratory Rate 20 09/11/2020 12:5 7 PM MOTOR BUILDER WINDER Oxygen Saturation 98% 09/11/2020 12: 57 PM MOTOR BUILDER WINDER Inhaled Oxygen Concentration - - Weight 50.8 kg (111 lb 14.4 oz) 020 12:57 PM MOTOR BUILDER WINDER Height 157.5 cm (5' 2) 09/11/2020 12:5 7 PM MOTOR BUILDER WINDER Body Mass Index 20.47 09/11/2020 12:57 PM MOTOR BUILDER WINDER Plan of Treatment Health Maintenance Due Date [...] 2015 COVID-19 Vaccine (2023-2 5 season) 2025 Mammogram Screening 2025 Meningococcal B Vaccine Aged Out No [...] patient's age to complete this topic Insurance R Care Teams Program Arranger Relationship Specialty Start Date End Date Raisa Vaz APNP [facility] [place] [address] PCP - General NURSE PRACTITIONER 09/11/20
--- OUTSIDE RECORDS SUMMARY | 2025-07-27 04:26 | XMS_ITS | Clinical Summary ---
Author Organization [facility] [address] Address [address] [place] [address] Care Team Providers Care 8Th Grade Teacher Name Role Phone Hector Downs MD Primary Care Provider Jinny Lucio OD Unavailable [phone] Allergies No known active allergies Medications [...] (12/06/2023): Pt presenting as a referral from site safety representative following admission for critical illness (iso alcohol withdrawal, sepsis) in 10/2023. Per outside records, patient documented to have bilateral disc edema OS>OD confirmed on OCT as well as macular star OS>OD along with macular cotton wool spots and retinal hemorrhages. Assessment & Plan (12/06/2023 10:08 AM GIS PROGRAMMER): TODAY --Pt reports seeing dots that she [...] 11/18/2023 Substance abuse 11/18/2023 Metabolic acidosis 11/08/2023 [place]'s syndrome 11/07/2023 Near syncope 10/31/2023 Mixed hyperlipidemia [...] Tobacco: Never Tobacco Cessation:Counseling Given: Not Answered [facility] Utilities Answer Date Recorded In the past 12 months has [facility] electric, gas, oil, or water company threatened [...] often do you attend chur ch or advent services? Patient unable to answer 11/11/2023 Do you belong to any clubs o r organizations such as zoroastrianism groups, unions, fraternal or athletic groups, or [...] place to sleep or slept in a custodial (including now)? Patient unable to answer 11/11/2023 Personal Safety Answer Date Recorded Have you ever been in or are you currently in a harmful physical or emotional relationship or is someone making you feel afraid or unsafe? Patient unable to answer 11/08/2023 Comments No Sex and Gender Information Value Date Recorded Sex Assigned at Not on file Legal Sex Female 7:44 PM GIS PROGRAMMER Gender Identity Not on file Sexual Orientation Not on file Obstetrics History Last Filed Vital Signs Vital Sign Reading Time Taken Comments Blood Pressure 140/94 11/19/2023 11:31 AM GIS PROGRAMMER Pulse 85 11/19/2023 11:31 AM GIS PROGRAMMER Temperature 37 C (98.6 F) 11/19/2023 11:31 AM GIS PROGRAMMER Respiratory Rate 22 11/19/2023 11:31 AM GIS PROGRAMMER Oxygen Saturation 93% 11/19/2023 11:31 AM GIS PROGRAMMER Inhaled Oxygen Concentration - - Weight 59.2 kg (130 lb 9.6 oz) 11/19/2023 5:00 A M GIS PROGRAMMER Height 157.5 cm (5' 2) 11/18/2023 1:34 PM GIS PROGRAMMER Body Mass Index 23.89 11/18/2023 1:34 PM GIS PROGRAMMER Plan of Treatment Health Maintenance Due Date [...] HEPATITIS PANEL, ACUTE Routine 11/08/2023 4:00 PM GIS PROGRAMMER from Last 3 Months or Most Recently Relevant to Health Maintenance Results * Hepatitis panel, acute Blood (11/08/2023 4:00 PM GIS PROGRAMMER) Hep A IgM Nonreactive Nonreactive [facility] Comment: Interpretive Data: If Hep A IgM Ab is reported as Equivocal, a new sample should be drawn in two weeks for testing. Current interpretive data was last revised on 20. Hep B core IgM Nonreactive Nonreactive [facility] Comment: Interpretive Data If HepB Core IgM Ab is reported as Equivocal, a new sample should be drawn in two weeks for testing. Current interpretive data was last revised on 20. Hep C Ab Nonreactive Nonreactive [facility] Comment: Antibodies to HCV not [...] [facility] Blood 11/08/2023 4:00 PM GIS PROGRAMMER 11/08/2023 4:12 PM GIS PROGRAMMER Ronda Dao NP LAB MICROBIOLOGY - GENE RAL ORDERABLES Final Result [facility] [address] [facility] Department [place] [address] from Last 3 Months or Most Recently Relevant to Health Maintenance Insurance [facility] [employer]ANS Address: [facility] [address] [place] [address] [facility] Address: [facility] [address] [place] [address] [employer] [facility] Address: [facility] [address] [place] [address] Advance Directives For more information, please contact: [phone] * Full Code (Latest Code Status on File) Date Activated Date Inactivated Comments 11/08/2023 9:01 AM 11/19/2023 6:19 PM Care Teams 8Th Grade Teacher Relationship Specialty Start Date End Date Hector Downs MD [address] [facility] [address] [place] [address] PCP - General Family Medicine 12/03/22 Jinny Lucio OD [address] [place] [address] Referring Physician Optometry 12/05/23
--- OUTSIDE RECORDS SUMMARY | 2025-07-27 04:26 | XMS_ITS | Patient Health Record ---
Author Organization [facility] [place] [facility] Address [address] [facility] [address] [place] [address] Care Team Providers Care Cloth Bolt Bander Name Role Phone Hector Downs MD Primary Care Provider Ramonita Pierson Unavailable [phone] Ty Salamanca Unavailable [phone] Allergies No Known Allergies Reason For Referral [...] W/U Status Risk Notes Problem Alcohol dependence (52107434) Alcohol dependence, uncomplicated (F10.20) Active confirmed Problem Moderate recurrent major depression (60051986) Major depressive disorder, recurrent, moderate (F33.1) Active confirmed Problem Generalized anxiety disorder (25105335) Generalized anxiety disorder (F41.1) Active confirmed Problem Attention deficit hyperactivity disorder, combined type (10052373) Attention-deficit hyperactivity disorder, combined type (F90.2) Active confirmed Vital Signs Heart Rate 101 /min 04/08/2025 Height-cm 157.48 cm 04/08/2025 Blood pressure diastolic 87 mm Hg 04/08/2025 Weight-kg 61.69 kg 04/08/2025 Height 62.00 in 04/08/2025 Blood pressure systolic 123 mm Hg 04/08/2025 Weight 136 lbs 04/08/2025 BMI 24.87 kg/m2 04/08/2025 Encounters Encounter Location Date Provider Diagnosis [facility] [employer] [place] [address] [address] 04/08/2025 Ramonita Escobar Major depressive disorder, recurrent, moderate F33.1 ; Generalized anxiety disorder F41.1 ; Attention-deficit hyperactivity disorder, combined type F90.2 ; Alcohol dependence, uncomplicated F10.20 ; Encounter for screening for cardiovascular disorders Z13.6 and Encounter for screening for depression Z13.31 [facility] [employer] [place] [address] [address] 09/28/2024 Ramonita Escobar Major depressive disorder, recurrent, moderate F33.1 [facility] [employer] [place] [address] [address] 09/28/2024 Ramonita Escobar Major depressive disorder, recurrent, moderate F33.1 [facility] [place] [address] [facility] [address] [address] 03/25/2025 Ramonita Escobar [facility] [place] [employer] [place] [address] [address] 04/15/2025 Ramonita Escobar [facility] [employer] [place] [address] [place] [address] 04/08/2025 Ramonitastone Escobar [facility] [address] [place] [address] 04/17/2025 Ramonitastone Escobar [facility] [address] [place] [address] 04/21/2025 Ramonitastone Garciainna [facility] [address] [place] [address] 04/22/2025 Ramonita Escobar Assessments Encounter Date Diagnosis [...] effects of psychotropic medications. -Crisis prevention hotline 281. Plan Of Treatment No Information Insurance Providers Payer Name Payer Address Payer Phone Subscriber Number Group Number Insured Name Patient Relationship to Insured Coverage Start Date Coverage End Date [facility] [address] [address] [place] [address] [id number] JAHMAGY WEINBERGLEY Self - patient is the insured Medical (General) History Medical History History ICD Code Problems: Attention deficit hyperactivit y disorder, combined type Generalized anxiety disorder Moderate recurrent major depression Severe recurrent major depression withou t psychotic features Vitamin D deficiency HTN MV prolapse alcohol induced pancreatitis Hospitalization History Reason Date(Month/Year) Medical admission for alcoholic pancreat itis 2023 [place], [place]. Alcohol withdrawal/detox 2024
--- OUTSIDE RECORDS SUMMARY | 2025-07-27 04:26 | XMS_ITS ---
Author Organization [facility] Address [address] [address] Phone Care Team Providers Care Tower Cleaner Name Role Phone Hector Downs MD Primary Care Provider [facility] Service Episode Status:Identified (Enrolling) Start date:07/07/2025 Related program episode:[facility] (Active) Continued Care and Services Coordination
--- OUTSIDE RECORDS SUMMARY | 2025-07-27 04:26 | XMS_ITS ---
Author Organization [facility] Address [address] [address] Phone Care Team Providers Care Filler In Name Role Phone Hector Downs MD [facility] Status:Enrolled (Active) Start date:07/07/2025 Enrollment date:07/07/2025 Related social drivers of health:Intimate Partner Violence, Social Connections, Tobacco Use, Financial Resource Strain, Depression, Stress, Physical Activity, Food Insecurity, Transportation Needs, Housing Stability Related service episodes:[facility] Service Episode (Enrolling) Continued Care and Services Coordination
[2025-07-27] MEDS: LACTATED RINGERS 1,000 ML 30 ML IV CONT ×2 (10:50→14:27)
--- NOTE | 2025-07-27 11:02 | WPDHPUPDATE1 ---
History and Physical Update Update Date/Time: 07/27/25 11:02 History and Physical has been reviewed, including an updated exam of the patient. There are NO changes in the patient's condition. Risks, benefits, and alternatives have been discussed and questions answered. Patient agrees to proceed with procedure.
--- NOTE | 2025-07-27 11:08 | SUR.PREOP ---
1040 PT MADE AWARE OF SURGERY TIME DELAY
--- NOTE | 2025-07-27 12:42 | WPDANESEPPF ---
Anes - Initial Pre Proc Eval Procedure: Operation Date: 07/27/25 12:30 Proposed Procedures p Examination Under Anesthesia, Excisional Biopsy Anal Mass - Aura Villanueva MD Date/Time: 07/27/25 12:42 Surgeon: Aura Villanueva MD Pre Op Diagnosis: Anal Mass Patient Data Age: 40 Gender: F Height: 1.57 m Weight: 61 kg Last Vital Signs Temp 36.3 C L 07/27/25 10:30 Pulse 102 H 07/27/25 10:30 Resp 16 07/27/25 10:30 BP 141/67 H 07/27/25 10:30 Pulse Ox 99 07/27/25 10:30 O2 Del Method Room Air 07/27/25 10:30 Allergies Allergy/AdvReac Type Severity Reaction Status Date / Time No Known Allergies Allergy Verified 07/27/25 11:01 Home Medications ?Medication ?Instructions ?Recorded ?Confirmed ?Type cholecalciferol (vitamin D3) 1,250 1,250 mcg PO WEEKLY 01/24/22 07/27/25 History mcg (50,000 unit) capsule atomoxetine 80 mg capsule 80 mg PO DAILY 04/07/25 07/27/25 History ferrous gluconate 324 mg (37.5 mg 37.5 mg PO DAILY 04/07/25 07/27/25 History iron) tablet lamotrigine 25 mg tablet 25 mg PO BID 04/07/25 07/27/25 History lorazepam 1 mg tablet 1 mg PO DAILY PRN anxiety 04/07/25 07/19/25 History sertraline 150 mg capsule 150 mg PO .at bedtime 04/07/25 07/27/25 History trazodone 100 mg tablet 100 mg PO QHS PRN insomnia 04/07/25 07/19/25 History amlodipine 10 mg tablet 10 mg PO DAILY 07/12/25 07/27/25 History pantoprazole 40 mg tablet,delayed 40 mg PO QAM 07/12/25 07/27/25 History release metoprolol succinate 50 mg capsule 50 mg PO DAILY 07/19/25 07/27/25 History sprinkle, ext. release 24 hr multivitamin (Daily Multi-Vitamin 1 tablet PO DAILY 07/19/25 07/27/25 History tablet) rizatriptan 10 mg disintegrating See Rx Instructions PO .COMPLEX 07/27/25 07/27/25 History tablet PRN migraine headache Patient hx anesthesia problems: none Family hx anesthesia problems: none Results Review: All pre-operative results and documents have been reviewed as part of the pre-operative evaluation. [facility] Past Medical History Medical History Anxiety Low vitamin D level Migraine headache Surgical History Surgical History No pertinent past surgical history Family History Family History Father Hypertension Diabetes mellitus Mother Hypertension Depression Social History Social History Social History: Single Years smoked: 10 Smoking status: Former smoker Tobacco type: cigarettes Smoking end date: 07/19/15 Alcohol intake: former Substance use: former Substance use type: former substance user and crack/cocaine Do You Feel Safe in your Home?: Yes Lack of Transportation: No Lack of Food: Never True Current Housing: I Have Housing Concerned About Future Housing: No Difficulty Paying Gas/Electric Bills: No Difficulty Paying for Meds: No Currently Unemployed: No Education: Don't Know Difficulty w/ Childcare or Family Care: No Living arrangements: with family Occupation/Education: occupation Gender identity (if verbalized by the patient): Female Sexual Orientation (if Verbalized by the Patient): Straight or Heterosexual Spiritual care concerns: No Anes - Eval Final PreProcedure Day of Procedure 07/27/25 12:42 Patient weight: normal Heart: regular rate and rhythm Lungs: clear to auscultation Airway: Mallampati scale class II Neurological: alert and oriented Last oral intake: >/= 8 hours ASA classification: III Emergent: no Anesthetic plan: proceed Anesthesia type and monitoring: general ETT and standard monitoring Results Review: All pre-operative results and documents have been reviewed as part of the pre-operative evaluation. Informed Consent: The patient's anesthetic plan and its attendant risks and benefits were discussed with the patient/family/POA. Questions were solicited and answers provided to the satisfaction of the patient/family/POA.
--- NOTE | 2025-07-27 12:43 | SUR.PREOP ---
PT UPDATED ON SURGERY DELAY TIME], DENIES NEEDS
[2025-07-27] MEDS: KETOROLAC 15 MG/ML VIAL (*BKC) IV PUSH (12:50)
[2025-07-27] MEDS: ACETAMINOPHEN 500 MG TABLET 1000 MG PO (12:50)
[2025-07-27] MEDS: ceFAZolin 2 GM in SODIUM CHLORIDE 0.9% IV 50 ML 100 ML IVPB (13:52)
--- NOTE | 2025-07-27 14:18 | S_PTH ---
PATIENT: Sharonda Hernandez LOC: [facility] U#:[id number] AGE/SX: 40/F ROOM: RE07/27/[address]: Aura Villanueva MD : 1985 BED: DIS: 07/27/2025 SPEC #: [id number] RECD: 07/28/25 08:41 STATUS: SUKI REQ #: [id number] CHAZ: 07/27/25 14:[address]: Aura Villanueva DEPT: [facility] Surgical RECD BY: Tamie Sun MLT, ([facility]) ENTERED: 07/28/25 08:42 SP TYPE: Surgical OTHR DR: Hector Downs MD Tissues: A - Mass Procedures: Hematoxylin and Eosin Stain Gross and Microscopic Level 3
[2025-07-27] MEDS: LIDOCAINE 2% GEL UROJET 10 ML PKG MUCOUS MEM (14:25)
[2025-07-27] MEDS: SCOPOLAMINE 1 MG PATCH 1 PATCH TRANSDERM (14:27)
--- NOTE | 2025-07-27 14:38 | W.PM.PROC2 ---
Procedure Note - Detailed Date of Procedure 07/27/25 Pre-op Diagnosis Anal mass Post-op Diagnosis Same Procedure Performed rectal exam under anesthesia, excisional biopsy anal mass measuring 2 x 2 cm Surgeon Aura Villanueva MD Anesthesia General and Local Indications 40-year-old female presenting to office with a anal mass. She reports slow growth over the last few months. Findings 2 x 2 cm anal mass at the 6 o'clock position Description of Procedure The patient was taken the operating room and placed in the modified lithotomy position. After adequate induction of general anesthesia, patient was prepped and draped in the normal sterile fashion. A time-out was then done to verify the patient's identity, as well as the procedure being performed. I began by doing a bilateral pudendal nerve block with local anesthetic. I then locally anesthetized the area of the mass in the 6 o'clock position in the anal canal. I then dilated the anus by doing a digital exam. I then placed the anoscope into the anal canal. The anal canal was noted to be largely unremarkable other than the noted mass at the 6 o'clock position. I then used the LigaSure device to excise this mass in full. Once excised, it was sent to pathology for further review. I then gained hemostasis with the Bovie cautery. No other pathology was noted within the anus. I then placed Gelfoam covered with lidocaine jelly in the rectal vault. Sterile dressing was then placed. The patient tolerated the procedure well and extubated postoperatively. She will be stent to the recovery room in stable condition. Implants Gelfoam covered with lidocaine jelly in the rectal vault Estimated Blood Loss 10 Packing Yes Pathology Yes Complications No immediate complications Condition Stable Disposition PACU [facility] Billing Surgery - Charge Forward: Surgery Billing
== END 2025-07-27 16:02 | disposition home or self-care (01) ==
PROVIDERS: PCP Family Medicine; Visit Provider Surgery
PROC: (CPT 46220; principal; 2025-07-27 12:30)
DX: K64.4 Residual hemorrhoidal skin tags (principal)
CPT/HCPCS: 46220; 88304; J0690; A9270; J1100; J1885; J2250; J2405; J2704; J3010; J7120